=== PATIENT | female | born 1965 | race Caucasian/White ===

== ENCOUNTER 2017-05-01 17:58 | Emergency (ER) | payer SELFPAY ==
[~2017-05-01] VITALS: Ht 162.6 cm; Wt 91.9 kg
[~2017-05-01 17:58] MED LIST: ALPR0.25 PO; SERT-234 PO; ZOLP10TA PO
[2017-05-01 18:03] VITALS: TEMP 36.8; Ht 162.6 cm; Wt 91.9 kg
[2017-05-01] MEDS ORDERED: ZOLP5TAB PO (18:25)
[2017-05-01] MEDS ORDERED: NAPR1TAB9 PO (18:25)
[2017-05-01] MEDS ORDERED: LOSA1TAB PO (18:25)
[2017-05-01] MEDS ORDERED: CETI10TA84 PO (18:25)
[2017-05-01] MEDS ORDERED: FURO-85 PO (18:25)
[2017-05-01 18:38] LABS: ISTAT CREATININE 0.8 mg/dl (0.6-1.3); ISTAT HEMOGLOBIN 15.3 g/dl (12.0-16.0); ISTAT IONIZED CALCIUM 1.18 mmol/l (1.12-1.32)
[2017-05-01 18:42] LABS: POINT OF CARE PRO-BNP < 15 pg/ml (0-900); POINT OF CARE TROPONIN I < 0.030 ng/ml (0-0.045)
--- NOTE | 2017-05-01 19:08 | EMERGENCY ROOM VISIT NOTE ---
History Report prepared by Stephanie: Shira Rene Under the Supervision of: Dr. Tello Torre D.O. First contact with patient: 18:08 Chief Complaint: CHEST PAIN Stated Complaint: LEGS SWELLINGS,CHEST/BACK/UPPER ARM PAIN, History of Present Illness The patient is a 51 year old female who presents to the Emergency Room with complaints of intermittent chest pain starting 2 days ago. She describes her pain as dull. Four days ago, she started to develop swelling in her feet and ankles. She went to her PCP who was concerned about her heart. She was started on Lasix and told to present to the ED if she started having other symptoms. Her swelling has gone down. Two days ago, she started having intermittent pain in her chest, shoulder, back, and neck. She reports a sensation of fullness in her ears and chest. She denies any SOB. She notes that she has had a cough for 2 months. She notes that she is under increased stress at work and in her personal life. She has a history of hypertension. Source of History: patient Onset: 2 days ago Position: chest Quality: dull Timing: intermittent Associated Symptoms: + cough, + neck pain, + back pain, No SOB Note: Pt reports shoulder pain, swelling in feet. Review of Systems See HPI for pertinent positives & negatives. A total of 10 systems reviewed and were otherwise negative. Past Medical & Surgical Medical Problems: (1) CALCULUS OF KIDNEY Family History No pertinent family history stated. Social History Smoking Status: Never Smoker Alcohol Use: occasionally Marital Status: Occupation Status: employed Current/Historical Medications Scheduled Losartan Potassium (Cozaar), 25 MG PO QPM Zolpidem Tartrate (Ambien), 2.5 MG PO HS Scheduled PRN Cetirizine (Zyrtec), 10 MG PO DAILY PRN for ALLERGIC REACTION Furosemide (Lasix), 20 MG PO DAILY PRN for edema Naproxen (Aleve), 220 MG PO BID PRN for Pain Allergies Coded Allergies: Sulfa Drugs (Verified Allergy, Unknown, UNKNOWN, 03/04/16) Physical Exam Vital Signs Date Time Temp Pulse Resp B/P (MAP) Pulse Ox O2 Delivery O2 Flow Rate FiO2 05/01/17 18:32 92 05/01/17 18:24 Room Air 05/01/17 18:24 96 Room Air 05/01/17 18:03 36.8 90 18 137/95 96 Room Air Physical Exam CONSTITUTIONAL/VITAL SIGNS: Reviewed / noted above. GENERAL: Non-toxic in appearance. INTEGUMENTARY: Warm, dry, and [place]. HEAD: Normocephalic. EYES: without scleral icterus or trauma. ENT/OROPHARYNX: clear and moist. LYMPHADENOPATHY/NECK: Is supple without lymphadenopathy or meningismus. RESPIRATORY: Lungs clear and equal. CARDIOVASCULAR: Regular rate and rhythm. GI/ABDOMEN: Soft and nontender. No organomegaly or pulsatile mass. No rebound or guarding. Normal bowel sounds. EXTREMITIES: Warm and well perfused. BACK: No CVA tenderness. NEUROLOGICAL: Intact without focal deficits. PSYCHIATRIC: normal affect. MUSCULOSKELETAL: Normally developed with good muscle tone. Medical Decision & Procedures ER Provider Diagnostic Interpretation: X ray results and stated below per my interpretation and radiology interpretation. CHEST ONE VIEW PORTABLE CLINICAL HISTORY: Atypical chest pain. Bilateral leg swelling. COMPARISON STUDY: 12/21/2012 FINDINGS: The cardiac and mediastinal contours remain stable. There is no focal pulmonary consolidation. There is no failure. There are no pleural effusions.[ IMPRESSION: No active disease in the chest. Electronically signed by: Jose Luis Guerra M.D. 05/01/2017 7:09 PM Dictated Date/Time: 05/01/2017 7:09 PM Laboratory Results Test 05/01/17 18:24 05/01/17 18:27 Bedside Troponin I < 0.030 ng/ml (0-0.045) YR-Dfy-[id number]-Type Natriuretic Peptide < 15 pg/ml (0-900) Bedside Hemoglobin 15.3 g/dl (12.0-16.0) Bedside Hematocrit 45 % (37-47) Bedside Sodium 139 mEq/L (135-144) Bedside Potassium 3.5 mEq/L (3.3-5.0) Bedside Chloride 104 mEq/L (101-112) Bedside Total CO2 23 mEq/l (24-31) Anion Gap 16.0 mmol/L (16-25) Bedside Blood Urea Nitrogen 13 mg/dl (7-18) Bedside Creatinine 0.8 mg/dl (0.6-1.3) Bedside Glucose (other) 115 mg/dl (70-99) Bedside Ionized Calcium (Robert) 1.18 mmol/l (1.12-1.32) Laboratory results as stated above per my review. ECG Indication: chest pain Rate (beats per minute): 87 Rhythm: normal sinus Findings: no ectopy, other (no acute injury) ED Course 1810: Previous medical records were reviewed. The patient was evaluated in room C10. A complete history and physical examination was performed. 1930: On reevaluation, the patient is resting comfortably. I discussed the results and findings with the patient. She verbalized agreement of the treatment plan. She was discharged home. Medical Decision Differential includes acute coronary syndrome, myocardial infarction, CVA, TIA, anemia, infection, pneumonia, UTI, pyelonephritis, poor nutrition, dehydration, electrolyte disturbance,hypoglycemia. This is a 51-year-old female who presents to the ED with a chief complaint of some swelling in her feet for the past 2-3 days. She saw her PCP and was started on Lasix. She states that the edema has improved. She states that her PCP told her to come to the ED should she develop any additional symptoms. The patient does report that she has been having some intermittent dull pains in her shoulders as well as her neck and back. This is been going on for some time. She also reports a cough for the past couple of months for which she is taking Zyrtec. She also takes Cozaar for hypertension. She denies any other significant symptoms. Denies chest pains or shortness of breath. Her vital signs are stable. Her physical exam did not show any abnormality. She does not have any obvious pedal edema at this time. The patient is not anemic. Chemistry panel was unremarkable. BNP and troponin are normal. EKG showed normal sinus rhythm. Chest x-ray did not show any abnormalities. The patient was told the results. She is felt to be stable for discharge and outpatient follow-up. Medication Reconcilliation Current Medication List: was personally reviewed by me Blood Pressure Screening Patient's blood pressure: Normal blood pressure Blood pressure disposition: Did not require urgent referral Impression Primary Impression: Edema Additional Impression: Back pain Scribe Attestation The scribe's documentation has been prepared under my direction and personally reviewed by me in its entirety. I confirm that the note above accurately reflects all work, treatment, procedures, and medical decision making performed by me. Departure Information Dispostion Home / Self-Care Referrals Brandy Chase DO (PCP) Patient Instructions My [facility] Additional Instructions Follow-up with your doctor for further care and evaluation in 1-2 days. Return to the emergency department for worsening or new symptoms or any concerns. You have been examined and treated today on an emergency basis only. This is not a substitute for, or an effort to provide, complete comprehensive medical care. It is impossible to recognize and treat all injuries or illnesses in a single emergency department visit. It is therefore important that you follow up closely with your doctor. Call as soon as possible for an appointment. Problem Qualifiers
--- NOTE | 2017-05-01 19:11 | DIAGNOSTIC IMAGING REPORT ---
CHEST ONE VIEW PORTABLE CLINICAL HISTORY: Atypical chest pain. Bilateral leg swelling. COMPARISON STUDY: 12/21/2012 FINDINGS: The cardiac and mediastinal contours remain stable. There is no focal pulmonary consolidation. There is no failure. There are no pleural effusions.[ IMPRESSION: No active disease in the chest. Electronically signed by: Jose Luis Guerra M.D. 05/01/2017 7:09 PM Dictated Date/Time: 05/01/2017 7:09 PM
[2017-05-01 19:43] VITALS: BP 131/94; PULSE 94; O2SAT 94
== END 2017-05-01 19:44 | disposition home or self-care (01) ==
LOC: C.EDB 17:59 → C.EDC 19:44
DX: R60.0 Localized edema (principal); M54.9 Dorsalgia, unspecified; I10 Essential (primary) hypertension; Z87.442 Personal history of urinary calculi; Z79.899 Other long term (current) drug therapy

== ENCOUNTER → 2017-11-25 | Outpatient (CLI) | payer OTHER ==
[~2017-11-25] MED LIST changes: -ALPR0.25 PO; +CETI10TA84 PO; +FURO-85 PO; +LOSA1TAB PO; +NAPR1TAB9 PO; -SERT-234 PO; -ZOLP10TA PO; +ZOLP5TAB PO
--- NOTE | 2017-11-28 14:49 | MAMMOGRAPHY REPORT ---
BILATERAL DIGITAL SCREENING MAMMOGRAM TOMOSYNTHESIS WITH CAD: 11/25/2017 CLINICAL HISTORY: Routine screening. TECHNIQUE: Breast tomosynthesis in addition to standard 2D mammography was performed. Current study was also evaluated with a Computer Aided Detection (CAD) system. COMPARISON: Comparison is made to exams dated: 04/11/2015 mammogram, 12/20/2013 mammogram, 01/28/2011 ma mmogram - [facility], and 04/09/2008. BREAST COMPOSITION: The tissue of both breasts is heterogeneously dense, which may obscure small mas ses. FINDINGS: No suspicious masses, calcifications, or areas of architectural distortion are noted in ei ther breast. There has been no significant interval change compared to prior exams. IMPRESSION: ACR BI-RADS CATEGORY 1: NEGATIVE There is no mammographic evidence of malignancy. A 1 year screening mammogram is recommended. The pa tient will receive written notification of the results. Approximately 10% of breast cancers are not detected with mammography. A negative mammographic report should not delay biopsy if a clinically suggestive mass is present. Génesis Brady M.D. ah/:11/25/2017 14:52:41 Retail Operations Specialist: Magnus ROME(R)(M), [facility] letter sent: Normal 1/2 BI-RADS Code: ACR BI-RADS Category 1: Negative
== END | disposition home or self-care (01) ==
LOC: C.MAMM 13:16
PROVIDERS: ATTEND Obstetrics & Gynecology
DX: Z12.31 Encounter for screening mammogram for malignant neoplasm of breast (principal)